=== PATIENT | female | born 1940 | race Caucasian/White ===

== ENCOUNTER 2018-09-03 13:17 | Emergency (ER) | payer MEDICARE, OTHER, SELFPAY ==
[2018-09-03 13:29] VITALS: BP 147/70; PULSE 104; TEMP 36.3; O2SAT 100
--- NOTE | 2018-09-03 13:30 | DI.US.S_ITS ---
PROCEDURE: US PERIPH VENOUS LOW EXTREM LT INDICATIONS: h/o dvt, cancer pt, not anticoagulated, + LE swelling / pain TECHNIQUE: Real-time imaging, as well as color and pulse Doppler interrogation, were performed of the lower extremity deep veins from the inguinal ligament to the popliteal fossa. COMPARISON: None. FINDINGS: There is thrombus and lack of compressibility within the superficial femoral and popliteal veins. Remaining deep venous veins are patent. IMPRESSION: Deep venous thrombosis within the superficial femoral and popliteal veins. Dictated by: Lucy Danielson M.D. on 09/03/2018 at 15:21 Approved by: Lucy Danielson M.D. on 09/03/2018 at 15:22
--- NOTE | 2018-09-03 14:50 | ED_ITS ---
HPI - Extremity Problem General Chief complaint: Extremity Problem,Nontraumatic Stated complaint: Swelling in lower left leg and ankle Time Seen by Provider: 09/03/18 13:22 Source: patient and family Mode of arrival: ambulatory Limitations: no limitations History of Present Illness HPI Narrative: 78-year-old female with known diagnosis of lung cancer, not on chemotherapy, and history of DVT presents from outside facility for evaluation of suspected left lower extremity DVT. She denies any injury or recent travel but has had increased swelling and some discomfort of her left lower extremity. She denies any redness, warmth nor fever or chills. She is not dizzy nor weak or lightheaded. She had been on aspirin up until a new immunologic agent was started by her oncologist and was stopped about 2 months ago. She is not anticoagulated otherwise. She has a history of a DVT many years ago after an injury and long distance travel. She denies any chest pain or shortness of breath nor near syncope. MD Complaint: extremity pain and extremity swelling Onset (ago): hour(s) Pain Consistency: constant Location: left Quality: aching Radiation: none Relieving factors: nothing Exacerbating factors: weight bearing and walking Associated symptoms: denies other symptoms Related Data Previous Rx's Medication Instructions Recorded enoxaparin [Lovenox] 90 mg SUBCUT Q12H #10 ml 09/03/18 Review of Systems Constitutional Denies chills, Denies fever(s), Denies lethargy and Denies weakness Eyes Denies change in vision, Denies eye discharge, Denies irritation and Denies loss of vision ENT Ears, Nose, Mouth, and Throat: Denies change in voice, Denies neck pain and Denies sore throat Cardiovascular Denies chest pain, Denies irregular heart rhythm, Denies lightheadedness, Denies palpitations, Denies dyspnea, Denies dyspnea on exertion and Denies orthopnea Respiratory Denies cough, Denies dyspnea, Denies dyspnea on exertion and Denies wheezing Gastrointestinal Gastrointestinal: Denies abdominal pain, Denies change in bowel habits, Denies diarrhea, Denies nausea and Denies vomiting Genitourinary Denies hematuria, Denies flank pain, Denies urinary incontinence and Denies urinary urgency Musculoskeletal Denies neck pain Integumentary/Breasts Denies pruritus, Denies erythema, Denies rash, Reports skin swelling and Denies wounds Neurologic Denies confusion, Denies loss of vision and Denies weakness Psychiatric Denies anxiety, Denies confusion, Denies depression, Denies homicidal ideation and Denies suicidal ideation Endocrine Denies palpitations Hematologic/Lymphatic Denies easy bruising Allergic/Immunologic Denies wheezing PFSH Social History Smoking Status: Former smoker Social History Smoking Status: Former smoker Exam Narrative Exam Narrative: GEN: AOx3 and in mild distress, 78F appears younger than stated age. EYES: Pupils are equal, round, and reactive to light and accommodation. Extraoccular muscles are intact bilaterally. There is no subconjunctival hemorrhage or exudate. CHEST: Lungs are clear to auscultation bilaterally and free of wheezes, rales, or rhonchi. Heart rate is regular rhythm, there are no murmurs, clicks, rubs, or gallops. There is no chest wall tenderness. ABD: Abdomen is soft and nontender. There is no guarding or rebound. Bowel sounds are normal in all 4 quadrants. There is no mass or organomegaly. EXT: Swelling of RLE below the knee. No redness, warmth or induration. Full painless ROM of all extremities with no loss of sensation or strength. SKIN: Warm, pink, and dry. No erythema or rash Initial Vital Signs Initial Vital Signs: Vital Signs Temperature 97.4 F L 09/03/18 13:29 Pulse Rate 104 H 09/03/18 13:29 Blood Pressure 147/70 H 09/03/18 13:29 Pulse Oximetry 100 09/03/18 13:29 Course Orders Ordered: ED Orders 09/03/18 13:30 US periph venous low extrem lt Stat Discontinued Medications Enoxaparin Sodium (Lovenox) 90 mg 1 mg/kg (90 mg) SUBCUT NOW ONE Stop: 09/03/18 14:38 Last Admin: 09/03/18 14:57 Dose: 90 mg Consultations Consultation #1: call to [facility] to discuss anticoagulation. They are happy with Lovenox as described above Time: 14:49 Vital Signs - 8 hr 09/03/18 13:29 09/03/18 15:07 09/03/18 15:56 Temperature 97.4 F L Pulse Rate 104 H 68 Pulse Rate [Bilateral Posterior Tibial] 68 Respiratory Rate 18 Blood Pressure 147/70 H 141/46 H Pulse Oximetry 100 96 Discharge Plan Departure Patient Disposition: Home Clinical Impression: Deep vein thrombosis of lower extremity Qualifiers: Affected thrombotic vein of extremity: unspecified lower extremity proximal vein Chronicity: acute Laterality: left Qualified Code(s): I82.4Y2 - Acute embolism and thrombosis of unspecified deep veins of left proximal lower extremity Discharge Date/Time: 09/03/18 15:56 Interventions: ED Discharge Assessment Last Done: 09/03/18 15:56 Instructions: DI for Deep Vein Thrombosis Activity Restrictions/Additional Instructions: *You have been diagnosed with [ acute left DVT (superficial femoral vein through the popliteal vein ] *What to do: *Take medications as directed *Follow up with your oncologist on Wednesday as planned. Let them know ahead of time that you were here and have a new diagnosis of DVT. If they want to switch your anticoagulation that's ok. *Return to ER if you should have any new, worsening or concerning symptoms Prescriptions: New enoxaparin [Lovenox] 100 mg/mL syringe 90 mg SUBCUT Q12H Qty: 10 RF: 0 Referrals: Bryon Balderas MD [Primary Care Provider] -
[2018-09-03] MEDS: ENOXAPARIN 100 MG/ML SYRINGE 90 MG SUBCUT (14:57)
[2018-09-03 15:07] VITALS: PULSE 68
[2018-09-03 15:56] VITALS: BP 141/46; PULSE 68; RESP 18; O2SAT 96
== END 2018-09-03 15:56 | disposition home or self-care (01) ==
PROVIDERS: Emergency Provider Emergency Medicine; PCP Student in an Organized Health Care Education/Training Program
DX: I82.442 Acute embolism and thrombosis of left tibial vein (principal)
CPT/HCPCS: 93971; 96372; 99282; 99283; J1650